=== PATIENT | female | born 1980 | race Caucasian/White ===

== ENCOUNTER 2017-11-12 00:45 | Outpatient (CLI) | payer SELFPAY ==
[2017-11-12 08:43] LABS: HEMOGLOBIN A1C 5.5 % (4.5-6.2)
[2017-11-12 08:55] LABS: CHOL/HDL RATIO 3.16 (0.00-4.99)
== END 2017-11-12 23:59 | disposition home or self-care (01) ==
LOC: HW HEART 00:45
DX: Z00.00 Encounter for general adult medical examination without abnormal findings (principal)
CPT/HCPCS: 36415

== ENCOUNTER 2017-11-16 18:13 | Emergency (ER) | payer BC, SELFPAY ==
[~2017-11-16] VITALS: Ht 167.6 cm; Wt 101.3 kg
[2017-11-16] MEDS ORDERED: dexamethasone sod phosphate 10mg/ml inj PO STA (18:43)
[2017-11-16] MEDS ORDERED: famotidine 20mg tablet PO ONE (18:45)
[2017-11-16] MEDS ORDERED: FAMO-128 PO (18:56)
[2017-11-16] MEDS ORDERED: DIPH25CA83 PO (18:56)
[2017-11-16 19:09] VITALS: BP 131/77
== END 2017-11-16 19:12 | disposition home or self-care (01) ==
LOC: ER 18:13
DX: R05 Cough (principal); T36.0X5A Adverse effect of penicillins, initial encounter; J03.90 Acute tonsillitis, unspecified; K21.9 Gastro-esophageal reflux disease without esophagitis; Z88.0 Allergy status to penicillin; Z88.8 Allergy status to other drugs, medicaments and biological substances; Y92.89 Other specified places as the place of occurrence of the external cause
CPT/HCPCS: 99283; J1100

== ENCOUNTER 2018-10-30 03:33 | Outpatient (CLI) | payer SELFPAY ==
[~2018-10-30 03:33] MED LIST: DIPH25CA83 PO; FAMO-128 PO
[2018-10-30 08:49] LABS: HEMOGLOBIN A1C 5.7 % (4.5-6.2)
[2018-10-30 09:00] LABS: CHOL/HDL RATIO 3.05 (0.00-4.99)
== END 2018-10-30 23:59 | disposition home or self-care (01) ==
LOC: HW HEART 03:33
DX: Z13.6 Encounter for screening for cardiovascular disorders (principal); K21.9 Gastro-esophageal reflux disease without esophagitis
CPT/HCPCS: 36415

== ENCOUNTER 2019-12-18 18:31 | Emergency (ER) | payer BC, OTHER, SELFPAY ==
[~2019-12-18] VITALS: Ht 167.6 cm; Wt 102.3 kg
[2019-12-18 19:40] LABS: BASOPHILS # (AUTO) 0.1 X10'3 (0-0.2); BASOPHILS % (AUTO) 0.5 % (0-1); EOSINOPHILS # (AUTO) 0.1 X10'3 (0-0.9); EOSINOPHILS % (AUTO) 0.6 % (0-6); HEMATOCRIT 42.3 % (35.0-45.0); HEMOGLOBIN 14.7 g/dl (12.0-16.0); LYMPHOCYTES # (AUTO) 1.7 X10'3 (1.1-4.8); LYMPHOCYTES % (AUTO) 10.4 % (21-51); MEAN CORPUSCULAR HEMOGLOBIN 29.3 PG (27.0-31.0); MEAN CORPUSCULAR HGB CONC 34.8 g/dL (33.0-36.5); MEAN CORPUSCULAR VOLUME 84.2 FL (78-98); MEAN PLATELET VOLUME 7.4 FL (7.4-10.4); MONOCYTES % (AUTO) 5.9 % (2-12); NEUTROPHILS # (AUTO) 13.9 X10'3 (1.8-7.7); NEUTROPHILS % (AUTO) 82.6 % (42-75); PLATELET COUNT 342 X10'3 (140-440); RED BLOOD COUNT 5.02 X10'6 (4.20-5.60); RED CELL DISTRIBUTION WIDTH 14.1 % (11.5-14.5); WHITE BLOOD COUNT 16.8 X10'3 (4.5-11.0)
[2019-12-18 19:53] LABS: ALANINE AMINOTRANSFERASE 53 U/L (12-78); ALBUMIN 4.4 G/DL (3.4-5.0); ALBUMIN/GLOBULIN RATIO 1.1 (1.1-1.5); ALKALINE PHOSPHATASE 80 IU/L (46-116); ANION GAP 10 (8-16); ASPARTATE AMINO TRANSFERASE 27 U/L (10-37); BILIRUBIN,TOTAL 0.7 MG/DL (0.1-1.0); BLOOD UREA NITROGEN 11 MG/DL (7-18); BUN/CREATININE RATIO 10.4 (6.6-38.0); CALCIUM 9.2 MG/DL (8.5-10.1); CHLORIDE 103 MMOL/L (99-107); CREATININE 1.06 MG/DL (0.40-0.90); GLUCOSE 99 MG/DL (70-104); POTASSIUM 3.6 MMOL/L (3.5-5.1); SODIUM 139 MMOL/L (135-145); TOTAL CARBON DIOXIDE 26.2 MMOL/L (24-32); TOTAL PROTEIN 8.3 G/DL (6.4-8.2); eGFR 58 ML/MIN
--- NOTE | 2019-12-18 20:07 | NUR ---
PT REPORTS NEGATIVE FLU TODAY AT [facility]. SENT TO ED FROM CLINIC. PT TRAVELED TO [facility] YESTERDAY, OTHERWISE DENIES TRAVEL HISTORY. DAUGHTER HAS BEEN SICK SINCE SATURDAY. PT WORKS IN [employer].
[2019-12-18 20:10] LABS: PARTIAL THROMBOPLASTIN TIME 26 SECONDS (22-32)
[2019-12-18 20:28] LABS: D-DIMER 0.32 MG/L FEU (0-0.50)
[2019-12-18 20:31] LABS: C-REACTIVE PROTEIN 0.66 MG/DL (0.0-0.5); CREATINE KINASE 166 U/L (26-192); LACTATE DEHYDROGENASE 163 U/L (81-234)
[2019-12-18] MEDS ORDERED: iohexol 350MG/ML 100ml bottle IV ONE (20:40)
[2019-12-18] MEDS ORDERED: acetaminophen 325mg tablet PO ONE (21:45)
[2019-12-18] MEDS ORDERED: ketorolac trometh. 30mg/ml inj. IV ONE (22:35)
[2019-12-18] MEDS ORDERED: ondansetron/PF 4mg/2ml inj IV ONE (22:35)
[2019-12-18] MEDS ORDERED: AZIT250T29 PO (22:36)
[2019-12-18 22:41] VITALS: BP 131/86
== END 2019-12-18 22:57 | disposition home or self-care (01) ==
LOC: ER 18:31
DX: J20.9 Acute bronchitis, unspecified (principal); K21.9 Gastro-esophageal reflux disease without esophagitis; Z88.0 Allergy status to penicillin; Z88.5 Allergy status to narcotic agent; Z79.899 Other long term (current) drug therapy
CPT/HCPCS: 36415; 71045; 71275; 80053; 82550; 83605; 83615; 84145; 85025; 85379; 85610; 85730; 86140; 87040; 87081; 87502; 87503; 87880; 96374; 96375; 99285; J1885; J2405; Q9967; 99284

== ENCOUNTER 2020-11-02 06:37 | Emergency (ER) | payer BC ==
[~2020-11-02] VITALS: Ht 167.6 cm; Wt 104.5 kg
[2020-11-02] MEDS ORDERED: normal saline 1000ML IV soln IVB ONE (07:25)
[2020-11-02] MEDS ORDERED: ondansetron/PF 4mg/2ml inj IV ONE (07:25)
[2020-11-02] MEDS ORDERED: morphine 2 MG/ML inj. syringe IV PRN (07:25)
[2020-11-02] MEDS ORDERED: pantoprazole 40 MG vial IV ONE (07:25)
[2020-11-02] MEDS ORDERED: metoclopramide 5 mg/ml inj IV ONE (08:05)
[2020-11-02] MEDS ORDERED: LORazepam 2 mg/ml vial IV ONE (08:40)
[2020-11-02] MEDS ORDERED: ONDA8TAB13 PO (09:20)
[2020-11-02 10:06] VITALS: BP 125/86
== END 2020-11-02 10:11 | disposition home or self-care (01) ==
LOC: ER 06:38
DX: G43.909 Migraine, unspecified, not intractable, without status migrainosus (principal); R11.10 Vomiting, unspecified; K21.9 Gastro-esophageal reflux disease without esophagitis; F12.90 Cannabis use, unspecified, uncomplicated; Z72.89 Other problems related to lifestyle; Z88.0 Allergy status to penicillin; Z88.8 Allergy status to other drugs, medicaments and biological substances; Z79.899 Other long term (current) drug therapy
CPT/HCPCS: 71045; 93005; 96361; 96374; 96375; 99284; C9113; J2060; J2270; J2405; J2765; J7030

== ENCOUNTER 2023-07-18 07:22 | Emergency (ER) | payer BC ==
[~2023-07-18] VITALS: Ht 167.6 cm; Wt 104.5 kg
[~2023-07-18 07:22] MED LIST changes: +ONDA8TAB13 PO
[2023-07-18 07:27] VITALS: TEMP 98.5
[2023-07-18 07:45] LABS: BASOPHILS # (AUTO) 0.1 X10'3 (0-0.2); BASOPHILS % (AUTO) 0.9 % (0-1); EOSINOPHILS # (AUTO) 0.3 X10'3 (0-0.9); EOSINOPHILS % (AUTO) 3.5 % (0-6); HEMATOCRIT 43.9 % (35.0-45.0); HEMOGLOBIN 14.9 g/dl (12.0-16.0); LYMPHOCYTES % (AUTO) 25.9 % (21-51); MEAN CORPUSCULAR HGB CONC 33.8 g/dL (33.0-36.5); MEAN CORPUSCULAR VOLUME 85.8 FL (78-98); MEAN PLATELET VOLUME 7.3 FL (7.4-10.4); MONOCYTES # (AUTO) 0.6 X10'3 (0-0.9); MONOCYTES % (AUTO) 7.7 % (2-12); NEUTROPHILS # (AUTO) 4.7 X10'3 (1.8-7.7); PLATELET COUNT 351 X10'3 (140-440); RED BLOOD COUNT 5.12 X10'6 (4.20-5.60); RED CELL DISTRIBUTION WIDTH 13.7 % (11.5-14.5); WHITE BLOOD COUNT 7.5 X10'3 (4.5-11.0)
[2023-07-18 07:53] LABS: ALANINE AMINOTRANSFERASE 62 U/L (12-78); ALBUMIN 4.1 G/DL (3.4-5.0); ALBUMIN/GLOBULIN RATIO 1.1 (1.1-1.5); ALKALINE PHOSPHATASE 78 IU/L (46-116); ANION GAP 11 (8-16); ASPARTATE AMINO TRANSFERASE 39 U/L (10-37); BILIRUBIN,TOTAL 0.5 MG/DL (0.1-1.0); BLOOD UREA NITROGEN 15 MG/DL (7-18); BUN/CREATININE RATIO 13.5 (10.0-20.0); CALCIUM 9.1 MG/DL (8.5-10.1); CHLORIDE 102 MMOL/L (99-107); CREATININE 1.11 MG/DL (0.40-0.90); GLUCOSE 141 MG/DL (70-104); POTASSIUM 3.8 MMOL/L (3.5-5.1); SODIUM 139 MMOL/L (135-145); TOTAL CARBON DIOXIDE 25.8 MMOL/L (24-32); eCRCL 61 ML/MIN; eGFR 54 ML/MIN
[2023-07-18 08:00] LABS: PRO BRAIN NATRIURETIC PEPTIDE < 30 PG/ML (0-125)
[2023-07-18 08:43] VITALS: BP 136/88; PULSE 88; RESP 17; O2SAT 98
[2023-07-18 09:51] LABS: D-DIMER < 0.19 MG/L FEU (0-0.50)
== END 2023-07-18 08:47 | disposition home or self-care (01) ==
LOC: ER 07:23
DX: R07.89 Other chest pain (principal); G43.909 Migraine, unspecified, not intractable, without status migrainosus; K21.9 Gastro-esophageal reflux disease without esophagitis; F41.9 Anxiety disorder, unspecified; F12.90 Cannabis use, unspecified, uncomplicated; Z72.89 Other problems related to lifestyle; Z88.0 Allergy status to penicillin; Z88.5 Allergy status to narcotic agent; Z88.8 Allergy status to other drugs, medicaments and biological substances; Z79.899 Other long term (current) drug therapy
CPT/HCPCS: 36415; 71045; 80053; 83880; 84145; 84484; 85025; 85379; 93005; 99285

== ENCOUNTER 2024-10-19 08:52 | Emergency (ER) | payer BC ==
[~2024-10-19] VITALS: Ht 170.2 cm; Wt 103.0 kg
[~2024-10-19 08:52] MED LIST changes: +ONDA-245 PO; -ONDA8TAB13 PO
[2024-10-19 09:14] VITALS: BP 171/106; PULSE 113; RESP 16; TEMP 98.5; O2SAT 99
[2024-10-19] MEDS: LIDOcaine 2% Viscous 15ml cup MM ONE (10:46)
[2024-10-19] MEDS: mag hydrox/Alum hydrox/simeth 30ml oral suspension PO ONE (10:46)
[2024-10-19] MEDS: sucralfate 1 gm tablet PO ONE (10:46)
== END 2024-10-19 10:54 | disposition home or self-care (01) ==
LOC: ER 08:52
DX: R09.A2 Foreign body sensation, throat (principal); F41.9 Anxiety disorder, unspecified; G43.909 Migraine, unspecified, not intractable, without status migrainosus; K21.9 Gastro-esophageal reflux disease without esophagitis; F12.90 Cannabis use, unspecified, uncomplicated; Z88.0 Allergy status to penicillin; Z88.8 Allergy status to other drugs, medicaments and biological substances
CPT/HCPCS: 70360; 71046; 99284